=== PATIENT | male | born 1955 | race Caucasian/White ===

== ENCOUNTER 2017-12-21 14:05 | Emergency (ER) | payer MEDICAID, OTHER ==
[~2017-12-21] VITALS: Ht 170.2 cm; Wt 77.1 kg
[2017-12-21 14:20] VITALS: BP 172/73
[2017-12-21] MEDS ORDERED: KETOROLAC TROMETH 60MG/2ML VIAL IM ONE (16:00)
== END 2017-12-21 16:22 | disposition home or self-care (01) ==
LOC: ER 14:05
DX: S29.011A Strain of muscle and tendon of front wall of thorax, initial encounter (principal); X50.0XXA Overexertion from strenuous movement or load, initial encounter; X50.9XXA Other and unspecified overexertion or strenuous movements or postures, initial encounter; Y93.89 Activity, other specified; Y99.8 Other external cause status; Y92.89 Other specified places as the place of occurrence of the external cause
CPT/HCPCS: 71046; 99284; J1885